=== PATIENT | female | born 1955 | race Caucasian/White ===

== ENCOUNTER 2019-05-04 13:37 | Outpatient (CLI) | payer OTHER, SELFPAY ==
--- NOTE | 2019-05-04 14:07 | XR_ITS ---
WS: [id number] Bone mineral density performed on a [employer], 05/04/2019 Clinical data: POST MENOPAUSAL Findings: The first 4 lumbar vertebral bodies demonstrated the bone mineral density of 0.808 g/cm2 for a young adult T score of -3.1. Measurement of the left hip reveals a bone mineral density of 0.801 g/cm2 with a young adult T score of -1.6. Measurement of the right hip reveals the bone mineral density of 0.799 g/cm2 for young adult T score of -1.7. XR/XR DEXA axial skeleton* [id number] Impression: 1. Osteoporosis of the lumbar spine. 2. Osteopenia of both hips.
== END 2019-05-04 13:38 | disposition home or self-care (01) ==
LOC: RADWPI 13:42
PROVIDERS: Family Provider Family Medicine; PCP Family Medicine; Visit Provider Nurse Practitioner
DX: Z78.0 Asymptomatic menopausal state (principal); M81.0 Age-related osteoporosis without current pathological fracture; M85.88 Other specified disorders of bone density and structure, other site
CPT/HCPCS: 77080

== ENCOUNTER 2020-10-11 14:32 | Outpatient (CLI) | payer MEDICARE, BC, SELFPAY ==
--- NOTE | 2020-10-11 14:47 | XR_ITS ---
WS: [id number] Lumbar spine, 3 views, 10/11/2020 Clinical Data: PAIN Comparison: None. Findings: No lumbar compression fractures or subluxation is seen. There is a compression fracture of the T12 ve rtebral body with loss of 50% of the anterior and central vertebral body height. No disc space narrow ing is seen. The transverse processes and SI joints are normal. There is a large amount of fecal material throughout the colon.Osteoporosis is seen. There is minimal anterior osteoarthritic spurring at L3, L4 and L5. There are clips in the right upper quadrant from a cholecystectomy. XR/XR lumbar spine 2-3V* [id number] Impression: 1. 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 2. T12 compression fracture.
== END 2020-10-11 14:33 | disposition home or self-care (01) ==
PROVIDERS: PCP Family Medicine; Visit Provider Chiropractor
DX: M54.5 Low back pain (principal); M81.0 Age-related osteoporosis without current pathological fracture; S22.089A Unspecified fracture of T11-T12 vertebra, initial encounter for closed fracture; X58.XXXA Exposure to other specified factors, initial encounter
CPT/HCPCS: 72100

== ENCOUNTER 2020-10-24 15:08 | Outpatient (CLI) | payer MEDICARE, BC, SELFPAY ==
--- NOTE | 2020-10-24 15:17 | CT_ITS ---
WS: [id number] No comparisons. Exam: CT chest wo con [id number] Date/Time of Exam: 10/24/2020 3:17 PM Reason For Exam: ABNORMAL CHEST CT DLP: 906.[address] scans at [facility] use at least one of these dose optimization techniques: automat ed exposure control; mA and/or kV adjustment per patient size (includes targeted exams where dose is matched to clinical indication); or iterative reconstruction. No comparisons. The lungs are fully expanded. The airway is patent. There are several subcentimeter mediastinal lymph nodes identified. The largest measures 9.5 mm at greatest short axis dimension and is along the righ t anterior pericarinal region. The thoracic aorta is normal in caliber. A 3 mm noncalcified nodule se en in the lateral aspect of the left lower lobe and is too small to characterize. A 5 mm calcified be nign-appearing nodule noted in the inferior aspect of the right middle lobe. No pleural or pericardia l effusion is demonstrated. Normal thyroid tissue. No axillary lymphadenopathy. No destructive bone l esions are seen. There is a compression fracture of the upper plate of the T11 vertebra with minimal posterior displacement. This is probably old. 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 Minimal wedge deformity of C7. CT sections the upper abdomen demonstrate a small hiata l hernia. Recommendations: If this patient is considered high risk for lung cancer, a follow-up CT in 6 months for surveillance could be performed. CT/CT chest wo con [id number] IMPRESSION: 1. 3 mm noncalcified nodule seen in the lateral aspect of the left lower lobe t oo small to characterize. 5 mm benign-appearing calcified nodule in the right m iddle lobe anteriorly. 2. Mild mediastinal lymphadenopathy that may be reactive. The largest node bisi ures 9.5 mm at greatest short axis dimension.
--- NOTE | 2020-10-24 16:00 | MR_ITS ---
WS: [id number] MRI THORACIC SPINE WITHOUT CONTRAST TECHNIQUE: Sagittal T1, T2 and STIR imaging. Axial T2 imaging. Noncontrast imaging obtained. CLINICAL INFORMATION: COMPRESSION FX COMPARISON: None. FINDINGS: Mild thoracic curve. Mild thoracic kyphosis centered at the T12 level. Acute appearing compression fr acture T12 vertebral body with mild retropulsion of the posterior superior cortex. Slight effacement of ventral thecal sac with mild central canal stenosis. No high-grade central canal narrowing. Cord s ignal is normal. Edema extends the pedicles bilaterally which appear intact. Fracture cleft in the T12 superior endpl ate. Loss of approximately 50% vertebral body height centrally. No other compression fractures. Mild paravertebral edema. Adrenal glands are normal. Normal caliber thoracic aorta. MR/MR thoracic spin wo con* [id number] IMPRESSION: 1. Acute T12 compression fracture with diffuse edema involving the T12 superio r endplate. Loss of approximately 50% vertebral body height. 2. Mild retropulsion of the posterior superior cortex at T12 with mild central canal stenosis. 3. Cord signal is normal. 4. No high-grade central canal stenosis. 5. No other significant findings.
== END 2020-10-24 15:09 | disposition home or self-care (01) ==
PROVIDERS: PCP Nurse Practitioner; Visit Provider Nurse Practitioner
DX: R93.89 Abnormal findings on diagnostic imaging of other specified body structures (principal); S22.088A Other fracture of T11-T12 vertebra, initial encounter for closed fracture; X58.XXXA Exposure to other specified factors, initial encounter
CPT/HCPCS: 71250; 72146

== ENCOUNTER → 2021-10-06 11:37 | Outpatient (BNVA) | payer MEDICARE, BC, SELFPAY | PROVIDERS: PCP Nurse Practitioner; Visit Provider Internal Medicine | DX: M81.0 Age-related osteoporosis without current pathological fracture (principal); M25.50 Pain in unspecified joint | CPT/HCPCS: 99204 ==

== ENCOUNTER 2021-10-15 09:17 | Outpatient (CLI) | payer MEDICARE, BC, SELFPAY ==
--- NOTE | 2021-10-15 09:00 | XR_ITS ---
WS: [id number] DEXA (DUAL ENERGY X-RAY ABSORPTIOMETRY) Bone mineral density was performed using a [employer] machine. HISTORY: M81.0 - Age-related osteoporosis without current pathological fracture... COMPARISON: 05/04/2019 Lumbar spine BMD (L1-L3): 0.610 T score: -4.7 Z score: -3.3 Total hip BMD: Left: 0.734 g/cm2. T score: -2.2 Z score: -1.1 Right: 0.027 g/cm2. T score: -7.8 Z score: -6.7 10 year probability of a major osteoporotic fracture is 24.7%. Compared to the prior study from 05/04/2019. Lumbar spine bone mineral density has decreased by 24.6%. Bilateral hips bone mineral density has decreased by 8.4%. XR/XR DEXA axial skeleton* [id number] IMPRESSION: OSTEOPOROSIS based upon the WHO classification for females. Significant decreas e in bone mineral density since the prior examination. Patient is at a signific ant increased risk for fracture.
== END 2021-10-15 09:18 | disposition home or self-care (01) ==
LOC: RAD 09:18
PROVIDERS: PCP Nurse Practitioner; Visit Provider Internal Medicine
DX: M81.0 Age-related osteoporosis without current pathological fracture (principal)
CPT/HCPCS: 77080

== ENCOUNTER 2021-12-23 11:03 | Outpatient (CLI) | payer MEDICARE, BC, SELFPAY ==
[2021-12-23 11:48] LABS: Albumin Level 3.9 g/dL (3.5-5.2); Calcium 9.9 mg/dL (8.5-10.5); Glomerular Filtration Rate 83.7 mL/min (90-130)
[2021-12-23 12:05] LABS: 25 Hydroxy Vitamin D 48 ng/mL (30-100)
[2021-12-23 12:11] VITALS: BP 140/79; PULSE 81; RESP 18; TEMP 36.3; O2SAT 99
[2021-12-23] MEDS: denosumab 60 mg SDV SUBCUT (12:23)
[2021-12-23 12:31] VITALS: BP 122/79; PULSE 81; RESP 18; TEMP 36.7; O2SAT 96
== END 2021-12-23 11:04 | disposition home or self-care (01) ==
PROVIDERS: PCP Nurse Practitioner; Visit Provider Internal Medicine
DX: M81.0 Age-related osteoporosis without current pathological fracture (principal)
CPT/HCPCS: 36415; 82040; 82306; 82310; 82565; 96372; J0897

== ENCOUNTER → 2022-05-20 12:27 | Outpatient (BNVA) | payer MEDICARE, BC, SELFPAY | PROVIDERS: PCP Nurse Practitioner; Visit Provider Otolaryngology | DX: H65.91 Unspecified nonsuppurative otitis media, right ear (principal); H69.81 Other specified disorders of Eustachian tube, right ear; H90.11 Conductive hearing loss, unilateral, right ear, with unrestricted hearing on the contralateral side | CPT/HCPCS: 99203 ==

== ENCOUNTER 2022-06-25 10:30 | Oncology outpatient (recurring) (ONCR) | payer MEDICARE, BC, SELFPAY ==
[2022-06-25 11:19] LABS: Albumin Level 4.4 g/dL (3.5-5.2); Calcium 9.5 mg/dL (8.5-10.5); Creatinine Clr Calc Pharmacy 67.9372; Glomerular Filtration Rate 83.7 mL/min (90-130)
[2022-06-25 11:23] VITALS: BP 117/78; PULSE 66; RESP 18; TEMP 36.8; O2SAT 98
[2022-06-25] MEDS: denosumab 60 mg SDV SUBCUT (11:29)
[2022-06-25 11:31] VITALS: BP 121/80; PULSE 64; RESP 18; TEMP 36.7; O2SAT 96
[2022-06-25 11:36] LABS: 25 Hydroxy Vitamin D 39 ng/mL (30-100)
== END 2022-06-26 23:59 | disposition home or self-care (01) ==
PROVIDERS: PCP Family Medicine; Visit Provider Internal Medicine
DX: M81.0 Age-related osteoporosis without current pathological fracture (principal); Z79.899 Other long term (current) drug therapy
CPT/HCPCS: 36415; 82040; 82306; 82310; 82565; 96372; J0897

== ENCOUNTER → 2022-07-20 11:31 | Outpatient (BNVA) | payer MEDICARE, BC, SELFPAY | PROVIDERS: PCP Family Medicine; Visit Provider Otolaryngology | DX: H69.81 Other specified disorders of Eustachian tube, right ear (principal) | CPT/HCPCS: 99212; 99213 ==

== ENCOUNTER → 2022-10-08 08:02 | Outpatient (BNVA) | payer MEDICARE, BC, SELFPAY | PROVIDERS: PCP Family Medicine; Visit Provider Podiatrist Foot & Ankle Surgery | DX: L60.8 Other nail disorders (principal); L60.3 Nail dystrophy | CPT/HCPCS: 99203 ==

== ENCOUNTER → 2022-11-09 08:49 | Outpatient (BNVA) | payer MEDICARE, BC, SELFPAY | PROVIDERS: PCP Family Medicine; Visit Provider Podiatrist Foot & Ankle Surgery | DX: L60.8 Other nail disorders (principal); B35.1 Tinea unguium | CPT/HCPCS: 99213 ==

== ENCOUNTER → 2022-12-02 11:28 | Outpatient (BNVA) | payer MEDICARE, BC, SELFPAY | PROVIDERS: Visit Provider Internal Medicine | DX: M81.0 Age-related osteoporosis without current pathological fracture (principal); M25.50 Pain in unspecified joint | CPT/HCPCS: 36415; 80053; 82306; 85025; 99213 ==

== ENCOUNTER 2022-12-18 10:04 | Oncology outpatient (recurring) (ONCR) | payer MEDICARE, BC, SELFPAY ==
[2022-12-18] MEDS: denosumab 60 mg SDV SUBCUT (10:36)
[2022-12-18 10:40] VITALS: BP 123/59; PULSE 86; RESP 16; TEMP 36.7; O2SAT 96
== END 2022-12-26 23:59 | disposition home or self-care (01) ==
LOC: ONCMED 10:05
PROVIDERS: PCP Family Medicine; Visit Provider Internal Medicine
DX: M81.0 Age-related osteoporosis without current pathological fracture (principal)
CPT/HCPCS: 96372; J0897

== ENCOUNTER 2023-10-07 11:18 | Oncology outpatient (recurring) (ONCR) | payer MEDICARE, BC, SELFPAY ==
[2023-10-07] MEDS: denosumab 60 mg SDV SUBCUT (12:05)
[2023-10-07 12:09] VITALS: BP 128/71; PULSE 75; RESP 16; TEMP 36.8; O2SAT 95
[2023-10-07 12:20] LABS: Albumin Level 4.2 g/dL (3.5-5.2); Calcium 9.3 mg/dL (8.5-10.5); Magnesium 2.4 mg/dL (1.7-2.3)
[2023-10-07 12:36] LABS: 25 Hydroxy Vitamin D 38 ng/mL (30-100)
== END 2023-10-27 23:59 | disposition home or self-care (01) ==
LOC: ONCMED 11:20
PROVIDERS: PCP Family Medicine; Visit Provider Internal Medicine Rheumatology
DX: M81.0 Age-related osteoporosis without current pathological fracture (principal)
CPT/HCPCS: 36415; 82040; 82306; 82310; 83735; 96372; J0897

== ENCOUNTER 2023-10-29 13:23 | Outpatient (CLI) | payer MEDICARE, BC, SELFPAY ==
--- NOTE | 2023-10-29 13:32 | XR_ITS ---
WS: [id number] DEXA (DUAL ENERGY X-RAY ABSORPTIOMETRY) Bone mineral density was performed using a [employer] machine. HISTORY: OSTEOPOROSIS COMPARISON: 05/04/2019 Lumbar spine BMD (L1-L4): 0.758 g/cm2 T score: -3.5 Z score: -2.1 Total hip BMD: Left: 0.814 g/cm2. T score: -1.5 Z score: -0.4 Right: 0.808 g/cm2. T score: -1.6 Z score: -0.4 10 year probability of a major osteoporotic fracture is 12.8% Compared to the prior study from 05/04/2019. Lumbar spine bone mineral density has decreased by 6.2%. Bilateral hips bone mineral density has increased by 1.4%. XR/XR DEXA axial skeleton* [id number] IMPRESSION: OSTEOPOROSIS based upon the WHO classification for females. Significant decreas e in bone mineral density within the lumbar spine since the prior exam. No sign ificant change of bone mineral density within the hips.
== END 2023-10-29 13:24 | disposition home or self-care (01) ==
PROVIDERS: PCP Family Medicine; Visit Provider Internal Medicine
DX: Z13.820 Encounter for screening for osteoporosis (principal); M81.0 Age-related osteoporosis without current pathological fracture
CPT/HCPCS: 77080

== ENCOUNTER → 2023-12-14 10:45 | Outpatient (BNVA) | payer MEDICARE, BC, SELFPAY | PROVIDERS: PCP Family Medicine; Visit Provider Internal Medicine Rheumatology | DX: M80.00XD Age-related osteoporosis with current pathological fracture, unspecified site, subsequent encounter for fracture with routine healing (principal); Z79.899 Other long term (current) drug therapy; Z98.890 Other specified postprocedural states | CPT/HCPCS: 99214 ==

== ENCOUNTER 2024-03-02 08:00 | Outpatient (CLI) | payer MEDICARE, BC, SELFPAY ==
--- NOTE | 2024-03-02 08:04 | CT_ITS ---
WS: [id number] CT chest w con* [id number] HISTORY: MEDIASTINAL LYMPHADENOPATHY TECHNIQUE: Axial imaging performed through the thorax. Coronal and sagittal reformats are submitted. All CT scans at [facility] use at least one of these dose optimization techniques: automated exposure control; mA and/or kV adjustment per patient size (includes targeted exams where dose is mat ched to clinical indication); or iterative reconstruction. CONTRAST: Omnipaque 350; 100 mL IV. DLP: 347.34 mGy.cm COMPARISON: 10/24/2020 Lungs and central airway: There are a few scattered micro nodules throughout the lungs. No change sin ce 10/24/2020. Some of these are calcified and some are noncalcified. No mass. No pneumonia. No atelec tasis. Pleura: Normal. No pleural effusion. Heart and pericardium: Normal size heart with no pericardial effusion. Mediastinum and alma delia: No adenopathy. There are a few small lymph nodes along the inferior paratrachea l regions measuring up to 9 mm. Very similar to the prior examination from 2020. Vessels: Normal size aortic and pulmonary artery. No coronary artery calcifications. Chest wall and lower neck: No soft tissue masses. Upper abdomen: Prior cholecystectomy. No adrenal mass. Osseous structures: T12 50% compression fracture status post vertebroplasty. CT/CT chest w con* [id number] IMPRESSION: 1. No mediastinal or hilar adenopathy. Similar size lymph nodes compared to . 2. There are a few tiny pulmonary micronodules, some of these are calcified an d some are noncalcified. No additional follow-up necessary. 3. Prior cholecystectomy.
[2024-03-02] MEDS: iohexol 350 mg/mL 500 mL Btl (per mL) IV (08:35)
== END 2024-03-02 08:02 | disposition home or self-care (01) ==
PROVIDERS: PCP Internal Medicine; Visit Provider Internal Medicine
DX: R59.0 Localized enlarged lymph nodes (principal); R91.8 Other nonspecific abnormal finding of lung field; Z90.49 Acquired absence of other specified parts of digestive tract
CPT/HCPCS: 71260

== ENCOUNTER 2024-06-19 14:33 | Outpatient (CLI) | payer MEDICARE, BC, SELFPAY ==
--- NOTE | 2024-06-19 14:37 | USCV_ITS ---
Krishnacorinne Mojgan Age: 68 Gender: F : 1955 Exam Date: 06/19/2024 14:41 Ordering Phys: Yeimy Davenport MD Technologist: DONNIE [place] [facility] [place]: Bilat bruit Risk Factors: Previous Vascular Surgery: Right Brachial BP: / Left Brachial BP: / Right Left Velocity (cm/s) Spectral Plaque Velocity (cm/s) Spectral Plaque Syst/Diast Broadening Syst/Diast Broadening 69.90/ 19.30 Prox CCA 67.70 / 17.20 62.30/ 21.40 Mid CCA 77.40 / 23.30 62.30/ 21.40 Distal CCA 69.60 / 21.30 51.20/ 17.40 Prox ICA 72.40 / 19.80 44.60/ 17.60 Mid ICA 62.10 / 26.00 64.80/ 22.30 Distal ICA 58.50 / 20.30 78.50 ECA 60.10 0.80 ICA/CCA 1.00 Antegrade Vertebral Antegrade 38.70/ 11.40 cm/s 37.60/ 12.50 cm/s Tri Subclavian Tri 67.80 95.40 CONCLUSIONS Right ICA stenosis <50%. Mild atheromatous plaque right carotid bulb/ICA. Left ICA stenosis <50%. Mild to moderate atheromatous plaque left carotid bulb/ICA. Intimal thickening in the common carotid arteries and internal carotid arteries bilaterally. Normal antegrade Doppler flow noted in the right vertebral artery. Normal antegrade Doppler flow noted in the left vertebral artery. Bereket Mccarthy MD (Electronically Signed) Final Date: 19 June 2024 16:39 S
== END 2024-06-19 14:34 | disposition home or self-care (01) ==
PROVIDERS: PCP Internal Medicine; Visit Provider Internal Medicine
DX: R09.89 Other specified symptoms and signs involving the circulatory and respiratory systems (principal); I65.23 Occlusion and stenosis of bilateral carotid arteries
CPT/HCPCS: 93880

== ENCOUNTER → 2024-12-19 11:13 | Outpatient (BNVA) | payer MEDICARE, BC, SELFPAY | PROVIDERS: PCP Internal Medicine; Visit Provider Internal Medicine Rheumatology | DX: M80.00XD Age-related osteoporosis with current pathological fracture, unspecified site, subsequent encounter for fracture with routine healing (principal); Z79.899 Other long term (current) drug therapy | CPT/HCPCS: 99214 ==

== ENCOUNTER 2024-12-22 11:07 | Oncology outpatient (recurring) (ONCR) | payer MEDICARE, BC, SELFPAY ==
[2024-12-22 11:35] VITALS: BP 134/77; PULSE 76; RESP 16; TEMP 35.9; O2SAT 98
== END 2024-12-26 23:59 | disposition home or self-care (01) ==
PROVIDERS: PCP Internal Medicine; Visit Provider Student in an Organized Health Care Education/Training Program
DX: M81.0 Age-related osteoporosis without current pathological fracture (principal); Z79.899 Other long term (current) drug therapy
CPT/HCPCS: 96372; J3590

== ENCOUNTER 2025-01-19 09:25 | Oncology outpatient (recurring) (ONCR) | payer MEDICARE, BC, SELFPAY | END 2025-01-26 23:59 | disposition home or self-care (01) | PROVIDERS: PCP Internal Medicine; Visit Provider Student in an Organized Health Care Education/Training Program | DX: M81.0 Age-related osteoporosis without current pathological fracture (principal); Z79.899 Other long term (current) drug therapy | CPT/HCPCS: 96372; 96377; J3590 ==

== ENCOUNTER 2025-02-15 09:58 | Outpatient (CLI) | payer MEDICARE, BC, SELFPAY ==
--- NOTE | 2025-02-15 10:02 | MM_ITS ---
WS: [id number] BILATERAL SCREENING DIGITAL TOMOSYNTHESIS MAMMOGRAM WITH CAD HISTORY: SCREENING COMPARISON: None available. Bilateral CC and MLO views with tomosynthesis and synthetic mammography submitted. Computer aided detection analyzed. Breast composition: There are scattered areas of fibroglandular density. No suspicious masses, microcalcifications or architectural distortion. 5 mm lymph node lateral LEFT breast. MM/MM scr BI tomosynthesis [id number] IMPRESSION: BI-RADS: 2 - Benign. FOLLOW UP: 1 Year Follow-up
== END 2025-02-15 09:59 | disposition home or self-care (01) ==
LOC: RAD 09:59
PROVIDERS: PCP Internal Medicine; Visit Provider Internal Medicine
DX: Z12.31 Encounter for screening mammogram for malignant neoplasm of breast (principal); R92.323 Mammographic fibroglandular density, bilateral breasts; R59.0 Localized enlarged lymph nodes
CPT/HCPCS: 77063; 77067

== ENCOUNTER 2025-02-19 10:36 | Oncology outpatient (recurring) (ONCR) | payer MEDICARE, BC, SELFPAY | END 2025-02-25 23:59 | disposition home or self-care (01) | PROVIDERS: PCP Internal Medicine; Visit Provider Student in an Organized Health Care Education/Training Program | DX: M81.0 Age-related osteoporosis without current pathological fracture (principal); Z79.899 Other long term (current) drug therapy | CPT/HCPCS: 96372; J3590 ==

== ENCOUNTER 2025-03-19 10:17 | Oncology outpatient (recurring) (ONCR) | payer MEDICARE, BC, SELFPAY | END 2025-03-28 23:59 | disposition home or self-care (01) | PROVIDERS: PCP Internal Medicine; Visit Provider Student in an Organized Health Care Education/Training Program | DX: Z53.9 Procedure and treatment not carried out, unspecified reason; M81.0 Age-related osteoporosis without current pathological fracture; Z79.899 Other long term (current) drug therapy | CPT/HCPCS: 96372; J3590 ==